=== PATIENT | male | born 1945 | race Caucasian/White ===

== ENCOUNTER → 2021-10-26 | Outpatient (CLI) | payer OTHER | LOC: M RAD 13:31 | PROVIDERS: ATTEND Surgery Vascular Surgery | DX: I71.4 Abdominal aortic aneurysm, without rupture (principal); R93.2 Abnormal findings on diagnostic imaging of liver and biliary tract; K57.30 Diverticulosis of large intestine without perforation or abscess without bleeding; N40.0 Benign prostatic hyperplasia without lower urinary tract symptoms ==